=== PATIENT | female | born 1980 | race Caucasian/White ===

== ENCOUNTER 2018-12-02 21:07 | Emergency (ER) | payer MEDICAID ==
[2018-12-03] MEDS ORDERED: Bupivacaine 0.5%/EPINEPHrine 1:200,000 1.8 ML Cartridge INJECT ONE (00:35)
[2018-12-03] MEDS ORDERED: Lidocaine/EPINEPHrine/Tetracaine Soln 5 ML Each TOP ONE (00:37)
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
[2018-12-03] MEDS ORDERED: Dental Adhesive 1 Tube DENT ONE ×2 (00:54→01:00)
== END 2018-12-03 01:26 | disposition home or self-care (01) ==
LOC: JP.ED 21:07
DX: S03.2XXA Dislocation of tooth, initial encounter (principal); Y08.89XA Assault by other specified means, initial encounter
CPT/HCPCS: 41899; 99282; A9270; J3490

== ENCOUNTER 2019-09-17 07:59 | Emergency (ER) | payer MEDICAID ==
[2019-09-17] MEDS ORDERED: Sodium Chloride 0.9% 1,000 ML IV SCH ×2 (09:00→09:15)
[2019-09-17] MEDS ORDERED: cefTRIAXone 1 GM in Sodium Chloride 0.9% 50 ML IV ONE (09:01)
[2019-09-17] MEDS ORDERED: Phenazopyridine 95 MG Tab PO ONE (09:07)
--- NOTE | 2019-09-17 09:08 | EDM.PDOC ---
ED HPI GENERAL MEDICAL PROBLEM - General Chief Complaint: Abdominal Pain Stated Complaint: PAIN IN LOW STOMACH AREA Time Seen by Provider: 09/17/19 09:02 Source of Information: Reports: Patient History Limitations: Reports: No Limitations - History of Present Illness INITIAL COMMENTS - FREE TEXT/NARRATIVE: pt is having supra pupic pain and some flank discomfort. She is not having the true dysuria but is having alot of spasma after she voids. She has been pushing fluids. Onset: Other ( this has been going on for a couple of days. She did have hematuria last week. ) Duration: Hour(s): Location: Reports: Abdomen Associated Symptoms: Reports: Other (pt has not had a fever. 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: Psychiatric History: Reports: Anxiety, Depression - Infectious Disease History Infectious Disease History: Reports: Chicken Pox Social & Family History - Tobacco Use Smoking Status *Q: Current Every Day Smoker Years of Tobacco use: 20 Packs/Tins Daily: 0.5 - Caffeine Use Caffeine Use: Reports: None - Recreational Drug Use Recreational Drug Use: Yes ED ROS GENERAL - Review of Systems Review Of Systems: See Below Constitutional: Reports: Fatigue HEENT: Reports: No Symptoms Respiratory: Reports: No Symptoms Cardiovascular: Reports: No Symptoms Endocrine: Reports: No Symptoms GI/Abdominal: Reports: Abdominal Pain, Other (pain in the supra pupic area. ) : Reports: Dysuria, Flank Pain, Other (pt is not having frequency. ) Skin: Reports: No Symptoms Neurological: Reports: No Symptoms Psychiatric: Reports: No Symptoms ED EXAM, GI/ABD - Physical Exam Exam: See Below Text/Narrative:: pt arrived with supra pupic and flank pain. She is not having the typical urgency and frequency. She has not spiked a temp. She has been pushing fluids. Exam Limited By: No Limitations General Appearance: Alert, Anxious, Mild Distress Ears: Normal TMs Nose: Normal Inspection Throat/Mouth: Normal Inspection Head: Atraumatic Neck: Normal Inspection Respiratory/Chest: No Respiratory Distress Cardiovascular: Regular Rate, Rhythm GI/Abdominal Exam: Soft, Tender, Other ( supra pupic and flank) (Female) Exam: Deferred Rectal (Female) Exam: Decreased Rectal Tone Back Exam: CVA Tenderness (L) Extremities: Normal Inspection Neurological: Alert, Oriented, Normal Cognition Course - Vital Signs Last Recorded V/S: Last Vital Signs Temp 36.1 C 09/17/19 08:17 Pulse 80 09/17/19 08:17 Resp 14 09/17/19 08:17 BP 130/74 09/17/19 08:17 Pulse Ox 98 09/17/19 08:17 - Orders/Labs/Meds Orders: Active Orders 24 hr Category Date Time Status CULTURE URINE [RM] Stat Lab 09/17/19 08:58 Received Sodium Chloride 0.9% [Normal Saline] 1,000 ml Med 09/17/19 09:00 Active IV ASDIRECTED Sodium Chloride 0.9% [Normal Saline] 1,000 ml Med 09/17/19 09:15 Active IV ASDIRECTED Medication Orders Sodium Chloride (Normal Saline) 1,000 mls @ 999 mls/hr IV ASDIRECTED DAMARIS Last Admin: 09/17/19 09:04 Dose: 999 mls/hr Sodium Chloride (Normal Saline) 1,000 mls @ 999 mls/hr IV ASDIRECTED DAMARIS Last Admin: 09/17/19 10:07 Dose: 999 mls/hr Labs: Laboratory Tests 09/17/19 09/17/19 09/17/19 Range/Units 08:27 09:07 09:07 WBC 13.9 H (4.5-11.0) K/uL RBC 4.50 (3.30-5.50) M/uL Hgb 13.1 (12.0-15.0) g/dL Hct 42.2 (36.0-48.0) % MCV 94 (80-98) fL MCH 29 (27-31) pg MCHC 31 L (32-36) % Plt Count 315 (150-400) K/uL Neut % (Auto) 82 H (36-66) % Lymph % (Auto) 10 L (24-44) % [place] % (Auto) 7 H (2-6) % Eos % (Auto) 1 L (2-4) % Baso % (Auto) 0 (0-1) % Sodium 140 (140-148) mmol/L Potassium 4.0 (3.6-5.2) mmol/L Chloride 104 (100-108) mmol/L Carbon Dioxide 26 (21-32) mmol/L Anion Gap 10.1 (5.0-14.0) mmol/L BUN 20 H (7-18) mg/dL Creatinine 1.0 (0.6-1.0) mg/dL Est Cr Clr Drug Dosing 76.95 mL/min Estimated GFR (MDRD) > 60 (>60) Glucose 86 (74-106) mg/dL Calcium 8.5 (8.5-10.1) mg/dL Total Bilirubin 0.4 (0.2-1.0) mg/dL AST 13 L (15-37) U/L ALT 20 (12-78) U/L Alkaline Phosphatase 66 (46-116) U/L Total Protein 7.0 (6.4-8.2) g/dL Albumin 3.5 (3.4-5.0) g/dL Globulin 3.5 (2.3-3.5) g/dL Albumin/Globulin Ratio 1.0 L (1.2-2.2) Urine Color Yellow (YELLOW) Urine Appearance Cloudy A (CLEAR) Urine pH 5.5 (5.0-8.0) Ur Specific [place] >= 1.030 (1.008-1.030) Urine Protein 30 H (NEGATIVE) mg/dL Urine Glucose (UA) Negative (NEGATIVE) mg/dL Urine Ketones Negative (NEGATIVE) mg/dL Urine Occult Blood Large H (NEGATIVE) Urine Nitrite Positive H (NEGATIVE) Urine Bilirubin Negative (NEGATIVE) Urine Urobilinogen 0.2 (0.2-1.0) EU/dL Ur Leukocyte Esterase Large H (NEGATIVE) Urine RBC Not seen (0-5) Urine WBC >100 H (0-5) Ur Epithelial Cells Occasional Urine Bacteria Many Meds: Medications Generic Name Dose Route Start Last Admin Trade Name Freq PRN Reason Stop Dose Admin Sodium Chloride 1,000 mls @ 999 mls/hr 09/17/19 09:00 09/17/19 09:04 Normal Saline IV 999 mls/hr ASDIRECTED DAMARIS Administration Sodium Chloride 1,000 mls @ 999 mls/hr 04/03/20 09:15 09/17/19 10:07 Normal Saline IV 999 mls/hr ASDIRECTED DAMARIS Administration Discontinued Medications Generic Name Dose Route Start Last Admin Trade Name Elmo PRN Reason Stop Dose Admin Ceftriaxone Sodium 1 gm/ 50 mls @ 100 mls/hr 09/17/19 09:01 09/17/19 09:13 Sodium Chloride IV 09/17/19 09:30 100 mls/hr ONETIME ONE Administration Phenazopyridine HCl 190 mg 09/17/19 09:07 09/17/19 09:13 Urinary Pain Relief PO 09/17/19 09:08 190 mg ONETIME ONE Administration - Re-Assessments/Exams Free Text/Narrative Re-Assessment/Exam: 09/17/19 09:28 pt appears dehydrated and gerson bolus with 2 liters of fluid. This does not appear to be a typical bladder infection and may have some kidney involvement. pt has a mildly elevated wbc. Her urine is very infected and will be cultured. Pt was given 2 liters of fluid and 1 gram of rocephen. 09/17/19 09:30pt has good kidney funtion. 09/17/19 10:16 Departure - Departure Time of Disposition: 10:17 Disposition: Home, Self-Care 01 Condition: Fair Clinical Impression: Kidney infection, Dehydration - Discharge Information Referrals: PCP,None [Primary Care Provider] - Forms: ED Department Discharge Care Plan Goals: push fluids, cipro 500mg bid. Will notify of culture results, follow up with regular Dr in 1 week. Sepsis Event Note - Evaluation Sepsis Screening Result: No Definite Risk - Focused Exam Vital Signs: Vital Signs Temp Pulse Resp BP Pulse Ox 09/17/19 08:17 36.1 C 80 14 130/74 98 Date Exam was Performed: 09/17/19 Time Exam was Performed: 10:16 - My Orders Last 24 Hours: My Active Orders 09/17/19 08:58 CULTURE URINE [RM] Stat 09/17/19 09:00 Sodium Chloride 0.9% [Normal Saline] 1,000 ml IV ASDIRECTED 09/17/19 09:15 Sodium Chloride 0.9% [Normal Saline] 1,000 ml IV ASDIRECTED - Assessment/Plan Last 24 Hours: My Active Orders 09/17/19 08:58 CULTURE URINE [RM] Stat 09/17/19 09:00 Sodium Chloride 0.9% [Normal Saline] 1,000 ml IV ASDIRECTED 09/17/19 09:15 Sodium Chloride 0.9% [Normal Saline] 1,000 ml IV ASDIRECTED
== END 2019-09-17 11:11 | disposition home or self-care (01) ==
LOC: JP.ED 07:59
DX: N15.9 Renal tubulo-interstitial disease, unspecified (principal); F17.210 Nicotine dependence, cigarettes, uncomplicated; E86.0 Dehydration
CPT/HCPCS: 36415; 80053; 81001; 85025; 87086; 87088; 87186; 96361; 96365; 99284; A9270; J0696; J7030; J7050; 99283

== ENCOUNTER 2019-09-17 22:16 | Emergency (ER) | payer SELFPAY ==
[2019-09-17] MEDS ORDERED: Phenazopyridine 95 MG Tab PO ONE (22:36)
[2019-09-17] MEDS ORDERED: HYDROmorphone 1 MG/ML Syringe IM ONE (22:37)
--- NOTE | 2019-09-17 22:46 | EDM.PDOC ---
ED HPI GENERAL MEDICAL PROBLEM - General Chief Complaint: Genitourinary Problem Stated Complaint: KIDNEY INFECTION PAIN Time Seen by Provider: 09/17/19 22:30 Source of Information: Reports: Patient History Limitations: Reports: No Limitations - History of Present Illness INITIAL COMMENTS - FREE TEXT/NARRATIVE: 39-year-old female who was seen here earlier today with a urinary tract infection, is having significant bladder spasms and pain. She was given a gram of Rocephin earlier today and 2 L of fluid, and 1 oral dose of Pyridium which helped for about 4 hours but now she is very uncomfortable. No back pain or fever. 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 Bladder Pain Score (Numeric/FACES): 8 - Related Data Allergies Allergy/AdvReac Type Severity Reaction Status Date / Time No Known Allergies Allergy Verified 09/17/19 08:14 Home Meds: Home Meds Ciprofloxacin HCl [Cipro] 500 mg PO BID 09/17/19 [History] Past Medical History - Past Health History Medical/Surgical History: Denies Medical/Surgical History HEENT History: Reports: Impaired Vision Genitourinary History: Reports: Other (See Below) Other Genitourinary History: ovarian cysts 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: Psychiatric History: Reports: Anxiety, Depression - Infectious Disease History Infectious Disease History: Reports: None Social & Family History - Family History Family Medical History: Unobtainable - Tobacco Use Smoking Status *Q: Current Status Unknown - Caffeine Use Caffeine Use: Reports: Soda - Recreational Drug Use Recreational Drug Use: No ED ROS GENERAL - Review of Systems Review Of Systems: See Below Constitutional: Denies: Fever, Chills HEENT: Reports: No Symptoms Respiratory: Denies: Shortness of Breath Cardiovascular: Denies: Chest Pain GI/Abdominal: Reports: Abdominal Pain : Reports: Urgency ED EXAM, GI/ABD - Physical Exam Exam: See Below Exam Limited By: No Limitations General Appearance: Alert, Mild Distress (Very uncomfortable) Eyes: Bilateral: Normal Appearance Head: Atraumatic Respiratory/Chest: No Respiratory Distress Back Exam: No: CVA Tenderness (R), CVA Tenderness (L) Neurological: Alert, Oriented Psychiatric: Anxious Course - Vital Signs Last Recorded V/S: Last Vital Signs Temp 96.4 F L 09/17/19 22:38 Pulse 74 09/17/19 22:38 Resp 14 09/17/19 22:38 BP 140/70 09/17/19 22:38 Pulse Ox 96 09/17/19 22:38 - Orders/Labs/Meds Meds: Medications Discontinued Medications Generic Name Dose Route Start Last Admin Trade Name Elmo PRN Reason Stop Dose Admin Hydromorphone HCl 1 mg 09/17/19 22:37 09/17/19 22:45 Dilaudid IM 09/17/19 22:38 1 mg ONETIME ONE Administration Phenazopyridine HCl 190 mg 09/17/19 22:36 09/17/19 22:45 Urinary Pain Relief PO 09/17/19 22:37 190 mg ONETIME ONE Administration - Re-Assessments/Exams Free Text/Narrative Re-Assessment/Exam: 09/17/19 22:45 Patient was given 200 mg of oral Pyridium and 1 mg of IM Dilaudid. A prescription for an additional 20 doses of Pyridium was given to fill tomorrow. She can return if worsening such as fever or vomiting. Departure - Departure Time of Disposition: 22:57 Disposition: Home, Self-Care 01 Clinical Impression: UTI, Urinary tract infectious disease, Bladder spasm - Discharge Information Instructions: Urinary Tract Infection, Adult Referrals: PCP,None [Primary Care Provider] - Forms: ED Department Discharge Care Plan Goals: Rest today, fill prescription tomorrow and take as needed for bladder pain. Return if worsening such as fever, increased pain or vomiting the medication. Sepsis Event Note - Evaluation Sepsis Screening Result: No Definite Risk - Focused Exam Vital Signs: Vital Signs Temp Pulse Resp BP Pulse Ox 09/17/19 22:38 96.4 F L 74 14 140/70 96 09/17/19 22:24 96.4 F L 72 16 146/82 H 96 Date Exam was Performed: 09/18/19 Time Exam was Performed: 00:16
== END 2019-09-17 22:58 | disposition home or self-care (01) ==
LOC: JP.ED 22:16
DX: N39.0 Urinary tract infection, site not specified (principal); N32.89 Other specified disorders of bladder
CPT/HCPCS: 96372; 99284; A9270; J1170; 99283

== ENCOUNTER 2024-11-11 19:30 | Emergency (ER) | payer BC ==
[2024-11-11 20:12] LABS: APPEARANCE,URINE TURBID (CLEAR); BILIRUBIN,URINE NEGATIVE (NEGATIVE); COLOR,URINE YELLOW (YELLOW); GLUCOSE,URINE NEGATIVE (NEGATIVE); KETONES,URINE 40 mg/dL (NEGATIVE); LEUKOCYTE ESTERASE,URINE LARGE (NEGATIVE); NITRITE,URINE POSITIVE (NEGATIVE); OCCULT BLOOD,URINE LARGE (NEGATIVE); PH,URINE 5.5 (5.0-8.0); PROTEIN,URINE 100 mg/dL (NEGATIVE); UROBILINOGEN,URINE 0.2 EU/dL (0.2-1.0)
[2024-11-11 20:19] LABS: AMORPHOUS SEDIMENT,URINE NOT SEEN; BACTERIA,URINE MANY; EPITHELIAL CELLS,URINE FEW; MUCUS,URINE FEW; RBC,URINE 50-75 (0-5); WBC,URINE PACKED (0-5)
[2024-11-11] MEDS: Sodium Chloride 0.9% 1,000 ML IV SCH (20:50)
[2024-11-11] MEDS: cefTRIAXone 2 GM in Sodium Chloride 0.9% 50 ML IV ONE (21:00)
== END 2024-11-11 22:14 | disposition home or self-care (01) ==
LOC: JP.ED 19:30
DX: N39.0 Urinary tract infection, site not specified (principal)
CPT/HCPCS: 81001; 87086; 87088; 87186; 96365; 99283-25; J0696; J7030